=== PATIENT | male | born 1980 | race Caucasian/White ===

== ENCOUNTER 2018-08-15 09:51 | Emergency (ER) | payer SELFPAY ==
[2018-08-15 09:56] VITALS: BP 128/82; PULSE 79; RESP 14; TEMP 37.3; O2SAT 100; BMI 21.2
[2018-08-15 10:16] VITALS: PULSE 70
[2018-08-15 10:20] VITALS: TEMP 37.4
[2018-08-15] MEDS: TET,DIPH,PERTUSS(ACELL),VAC/PF 0.5 ML SYRINGE IM (10:20)
[2018-08-15] MEDS: IBUPROFEN 400 MG TABLET 800 MG PO (10:20)
[2018-08-15] MEDS: DOXYCYCLINE HYCLATE 100 MG TABLET PO (10:23)
--- NOTE | 2018-08-15 19:27 | ED.EXTPRO ---
HPI - Extremity Problem General Chief complaint: Extremity Problem,Nontraumatic Stated complaint: Lt knee paid, swelling,heat Time Seen by Provider: 08/15/18 10:04 Source: patient and family Mode of arrival: ambulatory Limitations: no limitations History of Present Illness HPI Narrative: 38-year-old every day smoker presents with and a chief complaint of left anterior knee pain and swelling. He was sent by the walk-in clinic for evaluation of a likely septic joint. The patient denies any systemic symptoms such as nausea or vomiting nor fever or chills. Patient recently suffered an abrasion to his left lateral knee and in the day or 2 afterwards developed swelling to his anterior knee. He states it hurts when he flexes his knee and improves with rest. MD Complaint: extremity pain Onset (ago): day(s) Pain Consistency: constant Location: left Quality: burning and aching Radiation: none Relieving factors: rest Exacerbating factors: range of motion Associated symptoms: denies other symptoms Related Data Previous Rx's Medication Instructions Recorded doxycycline monohydrate 100 mg PO BID 10 Days #20 cap 08/15/18 Allergies Allergy/AdvReac Type Severity Reaction Status Date / Time No Known Drug Allergies Allergy Verified 08/15/18 09:59 Review of Systems Review of Systems All systems reviewed & are unremarkable except as noted in HPI and below Constitutional Denies chills, Denies fever(s), Denies lethargy and Denies weakness Eyes Denies change in vision, Denies eye discharge, Denies irritation and Denies loss of vision ENT Ears, Nose, Mouth, and Throat: Denies change in voice, Denies neck pain and Denies sore throat Cardiovascular Denies chest pain, Denies irregular heart rhythm, Denies lightheadedness, Denies palpitations, Denies dyspnea, Denies dyspnea on exertion and Denies orthopnea Respiratory Denies cough, Denies dyspnea, Denies dyspnea on exertion and Denies wheezing Gastrointestinal Gastrointestinal: Denies abdominal pain, Denies change in bowel habits, Denies diarrhea, Denies nausea and Denies vomiting Genitourinary Denies hematuria, Denies flank pain, Denies urinary incontinence and Denies urinary urgency Musculoskeletal Reports joint swelling and Denies neck pain Integumentary/Breasts Denies pruritus, Reports erythema, Denies rash, Reports skin pain, Reports skin swelling and Denies wounds Neurologic Denies confusion, Denies loss of vision and Denies weakness Psychiatric Denies anxiety, Denies confusion, Denies depression, Denies homicidal ideation and Denies suicidal ideation Endocrine Denies palpitations Hematologic/Lymphatic Denies easy bruising Allergic/Immunologic Denies wheezing FOR[facility]LY [facility] Social History Smoking Status: Current every day smoker alcohol intake: current (rarely) Exam Narrative Exam Narrative: GEN: AOx3 and in mild distress EYES: Pupils are equal, round, and reactive to light and accommodation. Extraoccular muscles are intact bilaterally. There is no subconjunctival hemorrhage or exudate. CHEST: Lungs are clear to auscultation bilaterally and free of wheezes, rales, or rhonchi. Heart rate is regular rhythm, there are no murmurs, clicks, rubs, or gallops. There is no chest wall tenderness. ABD: Abdomen is soft and nontender. There is no guarding or rebound. Bowel sounds are normal in all 4 quadrants. There is no mass or organomegaly. EXT: Very well demarcated area of erythema and warmth with minimal swelling to the anterior knee, overlying the patella. There is no joint effusion and the patient has painless passive range of motion of the knee suggesting septic arthritis is exceedingly unlikely. SKIN: Warm, pink, and dry. No erythema or rash Initial Vital Signs Initial Vital Signs: Vital Signs Temperature 99.2 F 08/15/18 09:56 Pulse Rate 79 08/15/18 09:56 Respiratory Rate 14 08/15/18 09:56 Blood Pressure 128/82 08/15/18 09:56 Pulse Oximetry 100 08/15/18 09:56 Course Orders Ordered: Discontinued Medications Diphtheria/Tetanus/Acell Pertussis (Adacel) 0.5 ml IM .ONCE ONE Stop: 08/15/18 10:15 Last Admin: 08/15/18 10:20 Dose: 0.5 ml Doxycycline Hyclate (Vibramycin) 100 mg PO NOW ONE Stop: 08/15/18 10:15 Last Admin: 08/15/18 10:23 Dose: 100 mg Ibuprofen (Advil) 800 mg PO NOW ONE Stop: 08/15/18 10:15 Last Admin: 08/15/18 10:20 Dose: 800 mg MDM - Extremity (Nontraumatic) MDM Narrative Medical decision making narrative: Septic arthritis was considered but thought less likely given the well demarcated anterior erythema of the knee in the absence of an effusion or pain on passive range of motion. Furthermore the patient has no systemic findings. Discharge Plan Departure Patient Disposition: Home Clinical Impression: Cellulitis Discharge Date/Time: 08/15/18 10:45 Interventions: ED Discharge Assessment Last Done: 08/15/18 10:44 Instructions: DI for Cellulitis -- Adult Activity Restrictions/Additional Instructions: *You have been diagnosed with [ left anterior knee cellulitis ] *What to do: *Take medications as directed: [facility] *Follow up with your primary care provider in 2-3 days, call for an appointment. Let them know you were seen in the Emergency Department and that we ask that you be seen in follow up *Return to ER if you should have any new, worsening or concerning symptoms Prescriptions: New doxycycline monohydrate 100 mg capsule 100 mg PO BID 10 Days Qty: 20 RF: 0 Stand Alone Forms: Work/School Restrictions
== END 2018-08-15 10:45 | disposition home or self-care (01) ==
PROVIDERS: Emergency Provider Emergency Medicine
DX: L03.116 Cellulitis of left lower limb (principal)
CPT/HCPCS: 90471; 99282; 99283; 90715